=== PATIENT | female | born 1980 ===

== ENCOUNTER → 2021-09-23 | Outpatient (CLI) | payer OTHER ==
[~2021-09-23] MED LIST: ALPR0.5T PO
--- NOTE | 2021-09-23 14:05 | PDOC1 ---
INITIAL PAIN CONSULT DATE OF SERVICE: DOS: DATE: 09/23/21 TIME: 13:59 CHIEF COMPLAINT: Chief Complaint: Low back and left lower extremity pain HISTORY OF PRESENT ILLNESS: 41-year-old female presents history of pain low back left lower extremity for approximately 6 months or longer in the low back rating the left lower extremity posterior gluteus posterior lateral thigh lateral anterior thigh anteromedial th igh mostly in the back and the upper leg patient reports is constant sharp stabbing throbbing with not the result of any specific injury or accident that she is aware of is getting worse over time patient has been doing exercising does Pilates does yoga does any different exercise routines daily and is staying very active and has physical therapy ordered which is coming up to start next week. Patient reports that the pain has only gotten better after Medrol and prednisone packs and is becoming more more temporary as she takes these more often patient reports her disability rating 0-10 10 being the worst is a 1 [employer] responsibilities set with recreation for social activity 6 with occupation and 0 sexual behavior self-care and life support activities. Patient reports it wakes her from sleep at least once or twice a night does not affect her bowel bladder control but does affect her ability to walk does not use any assistive devices to ambulate such as canes or walkers. Patient had some plain films showing some degenerative changes and early arthritic changes but no MRI scan or other diagnostic studies at this time. Patient has been taking prednisone also [id number] Tylenol both of which have not helped the present specifically much more helpful but only early on now is not decreasing the pain significantly. PAST MEDICAL HISTORY: PMH: Arthritis, cigarette smoking PREVIOUS SURGERIES: Past Surgical Hx: , liposuction CURRENT MEDICATIONS: Current Meds: Active Scripts Medications Dose Route/Sig Max Daily Dose Days Date Category Xanax (Alprazolam) 0.5 Mg Tablet 1 Tab PO DAILY 09/23/21 Reported ALLERGIES; Allergies: Coded Allergies: No Known Drug Allergies (Unverified , 09/23/21) FAMILY HISTORY: Family Hx: No major medical problems or conditions that she is aware of SOCIAL HISTORY: Social Hx: Patient drinks 2-3 alcoholic beverages a week smokes cigarettes about 2 packs a week and continues to smoke has for 25years marijuana occasionally once a week or so is single lives locally in [facility] and 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 PHYSICAL EXAM: VS: Blood pressure is 101/77 pulse 80 respirations 16 temperature is 98.4 F height is 5 foot 8 inches weight is 178 pounds PE: PHYSICAL EXAMINATION: GENERAL: The patient is awake, alert, oriented, appropriate, very pleasant in demeanor HEENT: Shows normocephalic, atraumatic. Extraocular movements are intact and symmetrical. Oral cavity: Mucous membranes moist and pink. Dentition is intact. NECK: Shows anterior throat supple without palpable lymphadenopathy noted. Swallow reflex symmetrical. CHEST: Shows normal on inspection. Breath sounds are clear bilaterally, no rales rhonchi or wheezes. HEART: Shows S1, S2 clear. No murmurs auscultated. ABDOMEN: Soft, nontender, nondistended. No palpable organomegaly is noted. BACK: Shows spine grossly in the midline. Normal-appearing cervical lordotic curvature. There is slightly increased thoracic kyphosis, some mild flattening of the lumbar lordotic curvature. Lumbar paraspinous muscles show symmetrical on inspection, on palpation shows some moderate tenderness diffusely throughout the upper, middle and lower distribution of the paraspinous muscles bilaterally and also into the lower thoracic paraspinous musculature, firm and tender, but without specific trigger points, without radiation of pain. The patient has good rotational motion of the lumbar spine, both laterally as well as extension and flexion without significant difficulty. No tenderness over the spinous processes, sacrum or sacroiliac regions. EXTREMITIES: Lower extremities show deep tendon reflexes 2 in the patellar and tendo calcaneus tendons. Motor exam is 5 on a scale of 5 with right dorsiflexion, extension, quadriceps and hamstring flexion and 4/5 on the left. Peripheral pulses are 1 posterior tibial. No peripheral edema is noted bilaterally. Lower extremities are warm and dry to touch, equal in color and appearance. Straight leg raise noted to be positive on the left at approximately 40 degrees and negative on the left. Gaenslen's and Andriy's maneuvers are negative bilaterally. The patient is able to stand, stand on her toes without difficulty loss of balance, walks with a normal-appearing gait is not appear to favor the right or left lower extremity significant is not use any assistive device such as canes or walkers to ambulate. SKIN: Shows warm and dry, good turgor. No edema. No sores, rashes or bruising throughout. IMPRESSION: Impression: 41-year-old female with 6-month history increasing pain low back left lower extremity radicular fashion following L4-5 dermatomal distribution Plain films as noted History of arthritis Cigarette smoking Plan: Options were discussed the patient including conservative medical management physical therapies and interventional techniques. Patient elects interventional techniques that she is doing multiple exercise classes and strategies as well as oral analgesics currently and prednisone tapers without long-lasting significant relief. We discussed a lumbar epidural steroid injections description as well as anatomical model to describe the procedure. Patient wait for preauthorization with insurance provider, once obtained I have her return for translaminar approach L4-5 level lumbar epidural steroid injection with fluoroscopic guidance. In the meantime, patient will continue with stretching strength exercises as well as yoga and Pilates as well as oral analgesics as currently. ELIN SAMANIEGO MD Sep 23, 2021 14:05
== END | disposition home or self-care (01) ==
LOC: PNCL 10:00
PROVIDERS: ATTEND Anesthesiology
DX: M79.605 Pain in left leg (principal); M54.50 Low back pain, unspecified; M19.90 Unspecified osteoarthritis, unspecified site; Z87.891 Personal history of nicotine dependence; Z79.899 Other long term (current) drug therapy
CPT/HCPCS: 99214; G0463